=== PATIENT | male | born 1980 | race Caucasian/White ===

== ENCOUNTER 2016-06-18 21:26 | Emergency (ER) | payer SELFPAY ==
[~2016-06-18] VITALS: Ht 177.8 cm; Wt 112.1 kg
[~2016-06-18 21:26] MED LIST: PREDNISONE20 MG PO; PROVENTIL2.5 MG/3 M IH; ZYRTEC10 M2 PO
[2016-06-18 21:50] LABS: HEMATOCRIT 41.9 % (38.0-50.0); MCH 31.9 PG (29.0-34.0); MCV 88.4 FL (86-99); MEAN PLAT.VOLUME 9.6 uM^3 (9.0-12.4); PLATELET COUNT 243 K/uL (156-360); RBC DIS.WIDTH-CV 12.3 % (11.8-14.6); RBC DIS.WIDTH-SD 38.7 % (39-53); RED BLOOD COUNT 4.74 M/uL (4.00-5.50); WHITE BLOOD COUNT 14.9 K/uL (4.1-10.2)
[2016-06-18 21:58] LABS: CHLORIDE 106 mEq/L (99-109); SODIUM 142 mEq/L (136-147)
[2016-06-18 21:59] LABS: GLUCOSE 98 mg/dL (70-99)
[2016-06-18 22:01] LABS: ANION GAP 13 MEQ/L (2-14)
[2016-06-18 22:03] LABS: GFR ESTIMATE (CALCULATED) > 59 mL/min/
[2016-06-18 22:04] LABS: UREA NITROGEN (BUN) 13 mg/dL (9-23)
[2016-06-18 22:50] LABS: ADD MIUA? YES; BILIRUBIN SMALL; BLOOD LARGE; GLUCOSE (STRIP) NEGATIVE; KETONES TRACE; LEUKOCYTES MODERATE; NITRITE NEGATIVE; PH, URINE 5.5 (5-8); PROTEIN (STRIP) 100; SPECIFIC GRAVITY 1.017 (1.000-1.030); UROBILINOGEN 0.2 MG/DL (0.2-1.0)
[2016-06-18 22:51] LABS: COLOR AMBER ((YELLOW))
[2016-06-18 23:06] LABS: RED BLOOD CELLS TNTC /HPF (0-5)
[2016-06-18 23:07] LABS: EPITHELIAL CELLS RARE; MUCUS NONE SEEN
[2016-06-18 23:09] LABS: BACTERIA RARE; CASTS NONE SEEN /LPF; CRYSTALS NONE SEEN; UCUL ADDED? NO
[2016-06-19] MEDS ORDERED: CIPRO500 MG PO (00:43)
[2016-06-19 00:54] VITALS: BP 136/90
[2016-06-20] MEDS ORDERED: NORCO 5/3251 TABLET PO (11:42)
[2016-06-20] MEDS ORDERED: ZOFRAN ODT8 MG PO (11:42)
== END 2016-06-19 01:06 | disposition home or self-care (01) ==
LOC: EME 21:26
DX: N39.0 Urinary tract infection, site not specified (principal); R31.9 Hematuria, unspecified; N13.2 Hydronephrosis with renal and ureteral calculous obstruction
CPT/HCPCS: 74176; 80048; 81003; 85027; 99281; 99284

== ENCOUNTER 2016-06-20 08:20 | Emergency (ER) | payer SELFPAY ==
[~2016-06-20] VITALS: Ht 177.8 cm; Wt 112.0 kg
[~2016-06-20 08:20] MED LIST changes: +CIPRO500 MG PO
[2016-06-20 09:01] LABS: ADD MIUA? YES; BILIRUBIN NEGATIVE; BLOOD LARGE; COLOR YELLOW ((YELLOW)); GLUCOSE (STRIP) NEGATIVE; KETONES TRACE; LEUKOCYTES NEGATIVE; NITRITE NEGATIVE; PROTEIN (STRIP) NEGATIVE; UROBILINOGEN 0.2 MG/DL (0.2-1.0)
[2016-06-20 09:13] LABS: BACTERIA 1+; CASTS NONE SEEN /LPF; CRYSTALS NONE SEEN; EPITHELIAL CELLS NONE SEEN; MUCUS NONE SEEN; RED BLOOD CELLS TNTC /HPF (0-5); WHITE BLOOD CELLS NONE SEEN /HPF (0-5)
[2016-06-20 09:27] LABS: BASOPHIL COUNT 0.1 K/uL (0-0.1); EOSINOPHIL COUNT 0.3 K/uL (0-0.3); HEMATOCRIT 41.5 % (38.0-50.0); IMMATURE GRANULOCYTE (%) 0.3 % (0.0-0.7); IMMATURE GRANULOCYTE COUNT 0.4 K/uL; LYMPHOCYTE COUNT 1.2 K/uL (1.0-2.8); MCH 31.6 PG (29.0-34.0); MCHC 36.1 G/DL (30.0-36.0); MCV 87.6 FL (86-99); MONOCYTE (%) 5.2 % (3-12); MONOCYTE COUNT 0.7 K/uL (0-0.8); NEUTROPHIL (%) 83.9 % (45-76); PLATELET COUNT 259 K/uL (156-360); RBC DIS.WIDTH-CV 12.1 % (11.8-14.6); RBC DIS.WIDTH-SD 37.9 % (39-53); RED BLOOD COUNT 4.74 M/uL (4.00-5.50); WHITE BLOOD COUNT 14.3 K/uL (4.1-10.2)
[2016-06-20 09:37] LABS: CHLORIDE 102 mEq/L (99-109)
[2016-06-20 09:39] LABS: GLUCOSE 95 mg/dL (70-99)
[2016-06-20 09:41] LABS: ANION GAP 13 MEQ/L (2-14); SODIUM 134 mEq/L (136-147); TOTAL BILIRUBIN 0.9 mg/dL (0.0-1.0)
[2016-06-20 09:43] LABS: ALKALINE PHOSPHATASE 102 IU/L (3-129); GFR ESTIMATE (CALCULATED) > 59 mL/min/
[2016-06-20 09:44] LABS: UREA NITROGEN (BUN) 14 mg/dL (9-23)
[2016-06-20 09:46] LABS: LIPASE 12 U/L (1.0-51.0)
[2016-06-20] MEDS ORDERED: NORCO 5/3251 TABLET PO (11:42)
[2016-06-20] MEDS ORDERED: ZOFRAN ODT8 MG PO (11:42)
[2016-06-20 12:23] VITALS: BP 138/100
== END 2016-06-20 12:25 | disposition home or self-care (01) ==
LOC: EME 08:20
PROVIDERS: Physician Assistant
DX: N23 Unspecified renal colic (principal); R31.9 Hematuria, unspecified; N50.812 Left testicular pain; R11.2 Nausea with vomiting, unspecified
CPT/HCPCS: 76770; 80053; 81003; 83690; 85025; 87086; 99281; 99284; J1885

== ENCOUNTER → 2016-06-25 | Outpatient (CLI) | payer SELFPAY ==
[~2016-06-25] MED LIST changes: +NORCO 5/3251 TABLET PO; +ZOFRAN ODT8 MG PO
== END | disposition home or self-care (01) ==
LOC: RAD 07:33
DX: N28.1 Cyst of kidney, acquired (principal); R31.0 Gross hematuria
CPT/HCPCS: 74177